=== PATIENT | male | born 1980 | race Caucasian/White ===

== ENCOUNTER 2019-07-26 07:06 | Inpatient (IN) | payer OTHER, SELFPAY ==
[2019-07-26] VITALS (13 sets, daily range): BP systolic 117–138; BP diastolic 79–90; PULSE 76–184; RESP 16–30; TEMP 36.7–37.1; O2SAT 80–96; BMI 22.4
--- NOTE | 2019-07-26 | ECHO_ITS ---
Patient Info Name: Michel Haque Age: 38 years : 1980 Gender: Male Ht: 74 in Wt: 174 lbs BSA: 2.03 m2 HR: 102 bpm BP: 130 / 90 mmHg Heart Rhythm: Sinus Rhythm Technical Quality: Fair Exam Date: 07/26/2019 2:03 PM Exam Location: [facility] Card Pulmonary Patient Status: Inpatient Admit Date: 07/26/2019 Staff Ordering Physician: Heriberto Bird MD Broaching Machine Operator: Melvi Christopher RDCS Attending Provider: Heriberto Bird MD Exam Type: CA echo doppler color flow Study Info Indications I48.0 - Paroxysmal atrial fibrillation - pulmonary edema Complete two-dimensional, color flow and Doppler transthoracic echocardiogram is performed. Summary 1. Left ventricular chamber dimension is normal. 2. Left ventricular systolic function is mildly reduced, estimated at 55-60%. 3. There is no increased left ventricular wall thickness. 4. The left ventricular diastolic function is indeterminate. 5. Definitive wall motion assessment cannot be provided. 6. There is mild aortic valve sclerosis. Left Ventricle Left ventricular chamber dimension is normal. Left ventricular systolic function is mildly reduced, estimated at 55-60%. There is no increased left ventricular wall thickness. The left ventricular diastolic function is indeterminate. Definitive wall motion assessment cannot be provided. Right Ventricle Right ventricular chamber dimension is normal. Right ventricular systolic function is normal. Left Atria Left atrial chamber dimension is normal. Right Atria Right atrial chamber dimension is normal. Atrial Septum Intact interatrial septum visualized by color flow imaging. Aortic Valve The aortic valve is trileaflet. There is mild aortic valve sclerosis. There is no aortic valve stenosis. There is trace aortic valve regurgitation. Pulmonic Valve The pulmonic valve is normal. Mitral Valve The mitral valve has normal leaflets. There is no mitral valve stenosis. There is trace mitral valve regurgitation. Tricuspid Valve The tricuspid valve leaflets are normal. There is no significant tricuspid valve stenosis. There is trace tricuspid valve regurgitation. Pericardium/Pleural The pericardium appears normal. There is trivial pericardial effusion. Inferior Vena Cava Normal inferior vena cava with >50% collapse upon inspiration consistent with normal right atrial pressure, 5 mmHg. Aorta The aortic root size at the sinus of Valsalva is normal. Tricuspid Valve Name Value Normal Estimated PAP/RSVP RA Pressure 5 mmHg <=5 Report Signatures
--- NOTE | ~2019-07-26 | XR_ITS ---
EXAMINATION: XR chest 1V portable DATE: 07/27/2019 06:33 INDICATION: Pulmonary edema. TECHNIQUE: A single frontal view of the chest was obtained. COMPARISON: Chest single view 07/26/2019 FINDINGS: There are perihilar interstitial opacities in the lungs bilaterally. No pleural effusion or pneumothorax. The heart size is normal. IMPRESSION: 1. Perihilar interstitial opacities in the lungs bilaterally with interval improvement, likely mild p ulmonary edema. Reviewed, dictated and finalized at location A. IMPRESSION: 1. Perihilar interstitial opacities in the lungs bilaterally with interval impr ovement, likely mild pulmonary edema.
--- NOTE | ~2019-07-26 | XR_ITS ---
EXAMINATION: XR chest 1V portable DATE: 07/26/2019 07:45 INDICATION: Hypoxia. TECHNIQUE: A single frontal view of the chest was obtained. COMPARISON: Chest 2 views 01/25/2019 FINDINGS: There are airspace opacities in right mid and lower lung zones and all left lung zones with a perihilar predominance. No pleural effusion or pneumothorax. The heart size is normal. IMPRESSION: 1. Diffuse lung disease, consistent with pulmonary edema versus pneumonia (especially atypical pneumo yamileth). Reviewed, dictated and finalized at location A. IMPRESSION: 1. Diffuse lung disease, consistent with pulmonary edema versus pneumonia (victoria cially atypical pneumonia).
--- NOTE | 2019-07-26 07:09 | ED.OVERDOSE ---
HPI - Overdose General Chief Complaint: Overdose Stated Complaint: OD Time Seen by Provider: 07/26/19 07:08 Source: patient, EMS and RN notes reviewed Mode of arrival: EMS Limitations: no limitations History of Present Illness HPI Narrative: Pt is a 38 y/o male who presents to the ED via EMS with c/o possible overdose happening this morning. According to the nurse, the pt has a Hx of heroin and Fentanyl use, but has been clean for roughly the past year. EMS notes that the pt's mother found him unresponsive in her basement this morning. He states that he doesn't remember what happened. EMS notes that the pt became more alert and responsive after administering 4 mg of Narcan while in route to the ED. Pt currently reports nausea, but denies any SOB, ABD pain, or melena. MD complaint: other (Possible Overdose) Intent: unknown How Overdose Was Discovered: family/friend present at time Associated symptoms: nausea/vomiting (nausea) Treatments Prior to Arrival: narcan (4 mg) Related Data Home Medications Medication Instructions Recorded Confirmed bupropion HCl [Wellbutrin SR] 100 mg PO BID 07/26/19 07/26/19 Allergies Allergy/AdvReac Type Severity Reaction Status Date / Time No Known Allergies Allergy Unknown Verified 07/26/19 11:24 Review of Systems Review of Systems: All systems reviewed & are unremarkable except as noted in HPI and below Respiratory: Respiratory: Denies dyspnea Gastrointestinal: Gastrointestinal: Denies abdominal pain, Denies melena and Reports nausea PMFSH Past Medical History Medical History ADD (attention deficit disorder) Alcoholism Anxiety Back pain History of drug use Otitis media Surgical History Surgical History Hx of hand surgery tendon repair on rt hand Family History Family History Sibling Cerebrovascular accident Son Asthma Other History of blood clots cousin had DVT's Mother Hypertension Other Colon cancer aunt Social History Social History (Updated 07/26/19 @ 12:46 by Heriberto Bird MD) Social History: Patient currently smoking half pack a day of cigarettes. Was up to 1 pack a day and has smoked for 25 years. Alcohol use as mentioned above. Drug use as mentioned above. He lives at home with his mother and his mother's girlfriend. He is a full code. He nominated his mother to be the individual who would make medical decisions for him if he is unable. Smoking packs per day: 0.5 Smoking cigarettes per day: 10.0 Years smoked: 23 Smoking pack-years: 11.50 Smoking status: Current every day smoker Tobacco type: cigarettes Alcohol intake: former Substance use: former Substance use type: heroin, opiates, IV drugs and methamphetamine Gender identity (if verbalized by the patient): Male Spiritual care concerns: No Agree to blood products: No Exam Const: General: alert Other: patient dry heaving, HENMT: Head: normocephalic and atraumatic Ears: hearing grossly normal bilaterally and external ears normal Face and sinus: normal facial exam and face symmetric Mouth: Yes Normal oral and palatal mucosa present and Yes lip normal Throat: posterior oropharynx normal, tonsils normal and uvula midline Eyes: Conjunctivae: conjunctivae normal Pupils: Equal, round and reactive pupils present EOM: EOMs intact bilaterally Chest: Chest palpation & inspection: normal inspection of the chest Resp: Effort & Inspection: normal respiratory effort and not tachypneic Auscultation: clear to auscultation bilaterally Cardio: Rate: tachycardic Rhythm: regular rhythm GI: GI Palp: Yes Soft to palpation, No Tenderness to palpation present (GI), No Guarding due to palpation present (GI) and No Rigid due to palpation Skin: General skin exam: normal color Rashes: no r
--- NOTE | 2019-07-26 07:11 | ECG_ITS ---
Measurements Intervals [place] Rate: 108 P: 76 WV: 144 QRS: 64 QRSD: 93 T: 58 QT: 269 QTc: 361 Interpretive Statements ATRIAL FIBRILLATION WITH RVR CHANGES TO SINUS RHYTHM BASELINE WANDER- V2 ABNORMAL ECG Electronically Signed On 07-26-2019 7:18:05 CDT by Marco Schneider D.O.
--- NOTE | 2019-07-26 07:18 | PC.NURSE ---
Dr Harp aware that patient had pulled out left EJ in field from EMS and area now swollen. Dr Harp also made aware of patient vomiting blood. No further orders at this time.
--- NOTE | 2019-07-26 07:21 | PC.NURSE ---
Report given to Henrietta HUERTA, Dr Harp at bedside
[2019-07-26] MEDS: ONDANSETRON INJ 4 MG/2 ML VIAL IV PUSH ×2 (07:24→09:54)
[2019-07-26] MEDS: PANTOPRAZOLE SODIUM IV 40 MG VIAL IV PUSH (07:27)
[2019-07-26 07:34] LABS: Alveolar/Arterial O2 Gradient 190.8 mmHg; Base Excess ABG -6.3 mEq/l (+/-2.0); Carboxyhemoglobin 1.6 % THb (0-2.0); Fractional Inspired Oxygen 44 %; HCO3 ABG 20.1 mEq/l (22.0-26.0); Methemoglobin ABG 0.7 %THb (0-1.5); Oxygen Content ABG 25.8 %vol (16.0-22.0); Oxygen Saturation ABG 93.3 % (95.0-100.0); Oxyhemoglobin 91.8 % THb (90.0-100.0); PCO2 ABG 42.9 mmHg (35.0-45.0); PO2 FiO2 Ratio Arterial Blood 1.68 %; Reduced Hemoglobin 5.9 %THb (0-5.0)
[2019-07-26 07:35] LABS: pH ABG 7.288 (7.350-7.450)
[2019-07-26 07:36] LABS: Device NASAL CANNULA; Modified Allen's Test Pass; Site Drawn RIGHT RADIAL
[2019-07-26 07:49] LABS: Basophils Percent Auto 0.3 % (0.2-1.2); Eosinophils Percent Auto 0.3 % (0-4.4); Hematocrit 54.8 % (42.0-52.0); Hemoglobin 18.7 g/dL (14.0-18.0); Immature Granulocyte Absolute 0.09 K/mm3 (0.00-0.031); Immature Granulocyte Percent A 0.8 % (0-0.5); Lymphocytes Absolute Auto 1.45 K/mm3 (0.9-3.2); Lymphocytes Percent Auto 12.1 % (18.3-44.2); Mean Corpuscular HGB Conc 34.1 g/dl (32-36); Mean Corpuscular Hemoglobin 30.9 pg (26-34); Mean Corpuscular Volume 90.4 fl (80-100); Mean Platelet Volume 10.1 fl (7.4-10.4); Monocytes Absolute Auto 0.4 K/mm3 (0.1-0.6); Neutrophils Percent Auto 83.5 % (45.5-73.1); Platelet Count Result 262 k/mm3 (150-375); Red Blood Count 6.06 M/mm3 (4.6-6.20); Red Cell Distribution Width 12.5 % (11.5-14.5)
[2019-07-26 08:02] LABS: Magnesium 2.1 mg/dL (1.6-2.3)
[2019-07-26 08:03] LABS: Lactic Acid Reflex 3.7 mmol/L (0.7-2.1)
[2019-07-26 08:04] LABS: Add Urine Microscopic? YES; Appearance Urine Clear (Clear); Bacteria Urine Trace /hpf; Bilirubin Urine Negative (Negative); Blood Urine Negative (Negative); Color Urine Yellow (Yellow); Glucose Urine UA 1+ mg/dL (Negative); Ketones Urine 1+ mg/dL (Negative); Leukocyte Esterase Ur Negative LEU/UL (Negative); Mucus Urine Heavy /lpf; Nitrate Urine Negative (Negative); Protein Urine 2+ mg/dL (Negative); Specific Grav Ur 1.031 (1.001-1.035); Squamous Epithelial Cell Urine Rare /hpf (Few); Urobilinogen Urine Negative mg/dL (<2.0)
[2019-07-26 08:16] LABS: Barbiturate Screen Urine Negative (Negative); Benzodiazepines Screen Urine Negative (Negative)
[2019-07-26 08:17] LABS: Acetaminophen < 10 ug/mL (10-30); Ethanol < 10 mg/dL (<10); Salicylate < 1.0 mg/dL (2-20)
[2019-07-26 08:22] LABS: INR 1.1; Prothrombin Time 13.5 Seconds (11.1-14.7)
[2019-07-26 08:23] LABS: Partial Thromboplastin Time 24.7 SECONDS (22.3-36.8)
[2019-07-26 08:30] LABS: Cannabinoid Screen Urine Negative (Negative); Cocaine Screen Urine Negative (Negative); Methadone Screen Urine Negative (Negative); Opiate Screen Urine Negative (Negative); Phencyclidine Screen Urine Negative (Negative)
[2019-07-26] MEDS: SODIUM CHLORIDE 0.9% IV 1,000 ML 999 ML IV CONT (08:30)
[2019-07-26 08:31] LABS: Amphetamine Screen Urine Positive (Negative)
[2019-07-26 08:33] LABS: NT Pro B Type Natriuretic Pept 38 PG/ML (5-100)
[2019-07-26 08:44] LABS: Alanine Aminotransferase 14 U/L (4-50); Albumin Level 4.6 g/dL (3.5-5.1); Alkaline Phosphatase 105 U/L (38-126); Aspartate Amino Transferase 33 U/L (17-59); Blood Urea Nitrogen 23 mg/dL (9-20); Calcium 8.8 mg/dL (8.4-10.2); Carbon Dioxide 20 mmol/L (22-30); Chloride 101 mmol/L (98-107); Estimated CRCL calculation 60 ml/min; Estimated Glomerular Filt Rate 49; Glucose 273 mg/dL (75-110); Potassium 3.6 mmol/L (3.4-5.0); Sodium 138 mmol/L (137-145)
[2019-07-26 10:46] LABS: Reflex Lactic Acid Yes or No Add Lactic
--- NOTE | 2019-07-26 11:07 | WPDCNINT ---
Assessment and Plan Assessment and plan (1) Drug overdose: Qualifiers: Encounter type: initial encounter Injury intent: accidental or unintentional Qualified Code(s): T50.901A - Poisoning by unspecified drugs, medicaments and biological substances, accidental (unintentional), initial encounter Code(s): T50.901A - Poisoning by unspecified drugs, medicaments and biological substances, accidental (unintentional), initial encounter Status: Acute Assessment and Plan: patient presented likely with methamphetamine and fentanyl overdose. Patient was found unresponsive by his mother and her basement On the morning of admission. - Patient did stated that he has been on methamphetamines 4 days prior to admission and could not sleep answer to talk fentanyl the night prior to admission to that he could sleep. - Patient did receive Narcan by the EMS personnel, and responded well - patient currently awake, alert, oriented, pleasant personality and cooperative. - will monitor for opioid and methamphetamine withdrawal - patient has been in rehab for the last 20 months, and with this pandemic of arias virus, he has not been able to follow-up. (2) Bilateral pulmonary infiltrates on chest x-ray: Code(s): R91.8 - Other nonspecific abnormal finding of lung field Status: Acute Assessment and Plan: bilateral pulmonary infiltrates could be related to atypical pneumonia secondary to SARS COV-2, patient was swabbed for COVID-19 on 07/26/2019 - chest x-ray and ABGs reviewed, could also be related to noncardiogenic pulmonary edema 2nd fentanyl use - will diurese patient - currently on 2 L nasal cannula with good O2 sats. (3) Noncardiogenic pulmonary edema: Code(s): J81.1 - Chronic pulmonary edema Status: Acute Assessment and Plan: Chest x-ray shows bilateral diffuse infiltrates, could be noncardiogenic pulmonary edema secondary to fentanyl - will reduce PCWP, will diurese patient - repeat chest x-ray later this evening or tomorrow morning (4) Tobacco use disorder: Code(s): F17.200 - Nicotine dependence, unspecified, uncomplicated Status: Acute Assessment and Plan: patient has a history of tobacco disorder, currently taking Wellbutrin and has cut back to half a packet per day incidental 1 pack per day. - counseled patient on tobacco cessation (5) Major depression: Qualifiers: Major depression recurrence: recurrent Active/Remission status: currently active Major depression episode severity: unspecified Qualified Code(s): F33.9 - Major depressive disorder, recurrent, unspecified Code(s): F32.9 - Major depressive disorder, single episode, unspecified Status: Acute Assessment and Plan: Continue Wellbutrin for now (6) DVT prophylaxis: Code(s): Z29.9 - Encounter for prophylactic measures, unspecified Status: Acute Assessment and Plan: enoxaparin Additional Plan discussed with patient updated with his condition and plan of care. I answered all his questions. Code status: Full code Critical care time spent:42 minutes Due to a high probability of clinically significant, life threatening deterioration, the patient required my highest level of preparedness to intervene emergently and I personally spent this critical care time directly and personally managing the patient. This critical care time included obtaining a history; examining the patient; pulse oximetry; ordering and review of studies; arranging urgent treatment with development of a management plan; evaluation of patient's response to treatment; frequent reassessment; and discussions with other providers. It was exclusive of separately billable procedures and treating other patients and teaching time. Please see Assessment and Plan section and the rest of the note for further information on patient assessment and treatment Legal Aide Consult Note
[2019-07-26] MEDS: FUROSEMIDE INJ 40 MG/4 ML VIAL IV PUSH (11:31)
[2019-07-26] MEDS: LACTATED RINGERS 1,000 ML 75 ML IV CONT (11:31)
--- NOTE | 2019-07-26 12:03 | PM.IMHP ---
H&P: HPI History of Present Illness Chief complaint: Acute respiratory failure w hypoxia/fentanyl overd Narrative: 38yo male here for unintentional drug overdose. Patient has a history of IV drug use, alcohol abuse, meth and fentanyl use. Patient had been clean for 20 months. He has been unable to get in to his AA meetings. He started Wellbutrin about a month ago has been compliant with this medication. He also has been recently tested for HIV and hepatitis which were about 1 month ago through [place]. Patient started using methamphetamine about 4-5 days ago. He has been hanging out with a friend over the past for 5 days. He believes that his friend was well without illness. He denies any significant review of systems of the past for 5 days however states that he was ?high the whole time?. He denies any recent fever chills. No COVID exposure that he is aware of. He had not slept for the past 4 days and decided to snort fentanyl last night. Patient has no memory of recent events until he was in the emergency room. Patient was found unresponsive by his mother and EMS was contacted. Patient was given Narcan x4 in the field. Patient became awake and alert. He developed nausea and vomiting. He was brought to the emergency room for evaluation. In the emergency room he was tachypneic and tachycardic to 184 with the pulse ox of 80% on room air. He was noted to be in atrial fibrillation converted to normal sinus rhythm. Blood pressure was stable. PH was 7.28 with a normal pCO2. Lactic acid was 3.7. Glucose was 273 and creatinine 0.6. Urine drug screen is positive for amphetamines. Chest x-ray reviewed personally showing diffuse lung disease consistent with pulmonary edema. Pneumonia could not be excluded. He was tested COVID. He was started on Zosyn. He had been having persistent nausea and vomiting with hematemesis. He was treated with Zofran. He has been admitted to the ICU for further care. Currently says he feels tired. Denies any headaches. He feels ?sad? but denies any suicidal or homicide ideation. He does feel short of breath and has a cough when he takes a deep breath. Still has the nausea but no further vomiting. No diarrhea. His weight is been stable. No chest pain. He states he drinks a pint of alcohol a day and this just started 4-5 days ago. Patient is voiding well after the Lasix dose. Review of Systems Review of Systems: All systems reviewed & are unremarkable except as noted in HPI and below PMFSH Past Medical History Medical History ADD (attention deficit disorder) Alcoholism Anxiety Back pain History of drug use Otitis media Surgical History Surgical History Hx of hand surgery tendon repair on rt hand Family History Family History Sibling Cerebrovascular accident Son Asthma Other History of blood clots cousin had DVT's Mother Hypertension Other Colon cancer aunt Social History Social History (Updated 07/26/19 @ 12:46 by Heriberto Bird MD) Social History: Patient currently smoking half pack a day of cigarettes. Was up to 1 pack a day and has smoked for 25 years. Alcohol use as mentioned above. Drug use as mentioned above. He lives at home with his mother and his mother's girlfriend. He is a full code. He nominated his mother to be the individual who would make medical decisions for him if he is unable. Smoking packs per day: 0.5 Smoking cigarettes per day: 10.0 Years smoked: 23 Smoking pack-years: 11.50 Smoking status: Current every day smoker Tobacco type: cigarettes Alcohol intake: former Substance use: former Substance use type: heroin, opiates, IV drugs and methamphetamine Gender identity (if verbalized by the patient): Male Spiritual care concerns: No Agree to blood products
[2019-07-26] MEDS: ENOXAPARIN 40 MG/0.4 ML SYRINGE SUB-Q (12:27)
[2019-07-26 13:02] LABS: Lactic Acid 1.9 mmol/L (0.7-2.1)
[2019-07-26] MEDS: THIAMINE HCL 200 MG/2 ML VIAL 100 MG IV PUSH (16:12)
[2019-07-26] MEDS: FOLIC ACID 1 MG/0.2 ML INJ IV PUSH (16:12)
[2019-07-26] MEDS: buPROPion HCL SR (12HR) 100 MG TABCR PO (20:36)
[2019-07-27] VITALS: BP 124/78; PULSE 76; PULSE 83; PULSE 85; RESP 14; TEMP 36.6; O2SAT 97
[2019-07-27 04:00] VITALS: PULSE 72; PULSE 83
[2019-07-27 05:52] LABS: Basophils Percent Auto 0.2 % (0.2-1.2); Eosinophils Absolute Auto 0.2 K/mm3 (0-0.3); Eosinophils Percent Auto 1.5 % (0-4.4); Hemoglobin 16.3 g/dL (14.0-18.0); Immature Granulocyte Absolute 0.03 K/mm3 (0.00-0.031); Immature Granulocyte Percent A 0.3 % (0-0.5); Lymphocytes Absolute Auto 3.52 K/mm3 (0.9-3.2); Lymphocytes Percent Auto 29.9 % (18.3-44.2); Mean Corpuscular HGB Conc 34.7 g/dl (32-36); Mean Corpuscular Volume 89.5 fl (80-100); Mean Platelet Volume 9.8 fl (7.4-10.4); Monocytes Absolute Auto 0.9 K/mm3 (0.1-0.6); Monocytes Percent Auto 7.6 % (2.6-8.5); Neutrophils Absolute Auto 7.1 K/mm3 (1.3-6.7); Neutrophils Percent Auto 60.5 % (45.5-73.1); Platelet Count Result 191 k/mm3 (150-375); Red Blood Count 5.25 M/mm3 (4.6-6.20); Red Cell Distribution Width 12.3 % (11.5-14.5); White Blood Count 11.8 K/mm3 (4.5-10.0)
[2019-07-27 06:04] LABS: Alanine Aminotransferase 11 U/L (4-50); Albumin Level 3.5 g/dL (3.5-5.1); Alkaline Phosphatase 66 U/L (38-126); Aspartate Amino Transferase 21 U/L (17-59); Blood Urea Nitrogen 21 mg/dL (9-20); Calcium 8.2 mg/dL (8.4-10.2); Carbon Dioxide 28 mmol/L (22-30); Chloride 102 mmol/L (98-107); Estimated CRCL calculation 73 ml/min; Estimated Glomerular Filt Rate 57; Glucose 91 mg/dL (75-110); Lactic Acid Reflex 0.8 mmol/L (0.7-2.1); Potassium 3.6 mmol/L (3.4-5.0); Sodium 137 mmol/L (137-145)
[2019-07-27 08:00] VITALS: BP 116/63; PULSE 67; PULSE 70; PULSE 83; RESP 18; TEMP 35.9; O2SAT 93
[2019-07-27] MEDS: PANTOPRAZOLE SODIUM IV 40 MG VIAL IV PUSH (08:24)
[2019-07-27] MEDS: ENOXAPARIN 40 MG/0.4 ML SYRINGE SUB-Q (08:24)
[2019-07-27] MEDS: FOLIC ACID 1 MG TABLET PO (08:24)
[2019-07-27] MEDS: buPROPion HCL SR (12HR) 100 MG TABCR PO (08:24)
[2019-07-27] MEDS: THIAMINE HCL 100 MG TABLET PO (08:24)
[2019-07-27 11:40] VITALS: PULSE 75
[2019-07-27 12:00] VITALS: PULSE 76
--- NOTE | 2019-07-27 14:11 | PM.IMPN ---
Progress Note: A&P Assessment and Plan (1) Noncardiogenic pulmonary edema: Code(s): J81.1 - Chronic pulmonary edema Status: Acute Assessment and Plan: Consistent with pulmonary edema versus pneumonia. Consider atypical pneumonia. COVID testing initiated with results pending but felt less likely. Chest x-ray findings could be related to diffuse lung reaction related to snorting fentanyl. Echocardiogram with EF 55-60% as noted below. Patient may also have been in atrial fibrillation longer than suspected which also could have contributed to pulmonary edema. Did receive Lasix x 1. Chest xray today with interval improvement of perihilar intersititial opacities. On room air. Discussed with patient. Will discharge home today as long as no issues with getting home/isolation at home as clinically improved and can continue to monitor as outpatient. Will need to remain in isolation while awaiting COVID test results. (2) Bilateral pulmonary infiltrates on chest x-ray: Code(s): R91.8 - Other nonspecific abnormal finding of lung field Status: Acute Assessment and Plan: WBC 11.8 today. More likely pulmonary edema from issues as noted above. Will continue IV Zosyn while here with plan to transition to oral Augmentin at discharge. (3) Drug overdose: Qualifiers: Encounter type: initial encounter Injury intent: accidental or unintentional Qualified Code(s): T50.901A - Poisoning by unspecified drugs, medicaments and biological substances, accidental (unintentional), initial encounter Code(s): T50.901A - Poisoning by unspecified drugs, medicaments and biological substances, accidental (unintentional), initial encounter Status: Acute Assessment and Plan: Unintentional drug overdose found by his mother. He required 4 doses of Narcan in the field. Patient appropriately fearful of his actions and voices understanding that he could have if not found. Continue supportive care. (4) Acute kidney injury: Code(s): N17.9 - Acute kidney failure, unspecified Status: Acute Assessment and Plan: IV fluids already discontinued yesterday. Result of above issues. Creatinine improved to 1.40 today. Will need to follow as outpatient. (5) Atrial fibrillation with rapid ventricular response: Code(s): I48.91 - Unspecified atrial fibrillation Status: Acute Assessment and Plan: Most likely had atrial fibrillation on admission related to his drug use and/or acute withdrawal symptoms with the Narcan. Patient converted to normal sinus rhythm. [id number] score 0. Telemtry reviewed on 07/27/2019 with continued sinus rhythm. Echocardiogram with EF 55-60%, definitive wall motion assessment cannot be provided. ASA considered but not started due to hematemesis. TSh normal at 2.900 today. (6) Hematemesis: Qualifiers: Nausea presence: with nausea Qualified Code(s): K92.0 - Hematemesis Code(s): K92.0 - Hematemesis Status: Acute Assessment and Plan: Patient was having hematemesis in the emergency room most likely related to acute withdrawal after being given the Narcan. Now resolved. No further nausea or vomiting. Hgb 16.3 today. (7) Alcoholism: Code(s): F10.20 - Alcohol dependence, uncomplicated Status: Acute Assessment and Plan: Patient has a history of alcoholism. He has been sober for 20 months. He relapsed a few days ago and now is back up to drinking a pint today. Continue thiamine and folate. Ativan available as needed for signs or symptoms of withdrawal but has not been used. (8) History of drug use: Code(s): Z87.898 - Personal history of other specified conditions Status: Acute Assessment and Plan: Patient has a history drug use including IV drug use. He has been clean for 20 months but has relapsed. Will need to follow up as outpatient when able. (9) Major depression:
--- NOTE | 2019-07-27 18:54 | PM.DS ---
DS: Diagnosis Admitting Diagnosis Admitting Diagnosis: Poisoning by unspecified drugs, medicaments and biological substances, accidental (unintentional), initial encounter Discharge Diagnosis (1) Noncardiogenic pulmonary edema: Code(s): J81.1 - Chronic pulmonary edema Status: Acute (2) Acute respiratory failure with hypoxia: Code(s): J96.01 - Acute respiratory failure with hypoxia Status: Acute (3) Bilateral pulmonary infiltrates on chest x-ray: Code(s): R91.8 - Other nonspecific abnormal finding of lung field Status: Acute (4) Drug overdose: Qualifiers: Encounter type: initial encounter Injury intent: accidental or unintentional Qualified Code(s): T50.901A - Poisoning by unspecified drugs, medicaments and biological substances, accidental (unintentional), initial encounter Code(s): T50.901A - Poisoning by unspecified drugs, medicaments and biological substances, accidental (unintentional), initial encounter Status: Acute (5) Acute kidney injury: Code(s): N17.9 - Acute kidney failure, unspecified Status: Acute (6) Atrial fibrillation with rapid ventricular response: Code(s): I48.91 - Unspecified atrial fibrillation Status: Acute (7) Hematemesis: Qualifiers: Nausea presence: with nausea Qualified Code(s): K92.0 - Hematemesis Code(s): K92.0 - Hematemesis Status: Acute (8) Alcoholism: Code(s): F10.20 - Alcohol dependence, uncomplicated Status: Acute (9) History of drug use: Code(s): Z87.898 - Personal history of other specified conditions Status: Acute (10) Major depression: Qualifiers: Major depression recurrence: recurrent Active/Remission status: currently active Major depression episode severity: unspecified Qualified Code(s): F33.9 - Major depressive disorder, recurrent, unspecified Code(s): F32.9 - Major depressive disorder, single episode, unspecified Status: Acute (11) Tobacco use disorder: Code(s): F17.200 - Nicotine dependence, unspecified, uncomplicated Status: Acute DS: Summary Hospital Course Reason for hospitalization: Accidental overdose. Hospital Course: Date of Service of Discharge: July 27, 2019. History of Present Illness: Patient is a 38-year-old gentleman with known history of IV drug use, alcohol abuse including methamphetamine and fentanyl use who was brought to the emergency room with unintentional drug overdose. Patient has been clean for approximately 20 months but has been unable to go to his AA meetings due to current COVID-19 pandemic. Patient started Wellbutrin 1 month ago and has been compliant. He reports starting to use methamphetamine approximately 4-5 days ago. He denies any recent fever or chills. No COVID exposure that he is aware of. Patient reports he was unable to sleep for 4 days and decided to snort fentanyl the night before presentation. Patient was found unresponsive by his mother with EMS contacted. EMS administered Narcan x4 in the field. Patient then became awake and alert. He subsequently developed nausea and vomiting. He was brought to the emergency room for evaluation. In the emergency room he was noted to be tachypneic and tachycardic as well as an atrial fibrillation but converted to sinus rhythm on his own. Imaging did show diffuse lung disease consistent with pulmonary edema. With all of his findings, COVID testing was initiated. He was admitted to the ICU for further evaluation and treatment. Course in Hospital: On admission, patient was admitted to the ICU but within 12 hours transfer to medical floor with telemetry. He was placed on isolation with COVID testing pending. He was started on IV Zosyn with concern for possible aspiration. Additionally based on imaging, he was given IV Lasix. He was seen in consultation by home health billing specialist. After all evaluations, pulmonary edema was felt more li
[2019-07-28 05:35] LABS: Pan-SARS RNA: NEGATIVE (NEGATIVE); SARS-CoV-2 RNA: NEGATIVE (NEGATIVE)
== END 2019-07-27 16:45 | disposition home or self-care (01) | DRG 812 ==
LOC: ANHED 09:24 → ANHICU 10:09
PROVIDERS: Internal Medicine; Admitting Provider Internal Medicine; Emergency Provider General Practice; Visit Provider Hospitalist
DX: T40.4X1A Poisoning by other synthetic narcotics, accidental (unintentional), initial encounter (principal); T43.621A Poisoning by amphetamines, accidental (unintentional), initial encounter; N17.9 Acute kidney failure, unspecified; I48.91 Unspecified atrial fibrillation; J70.2 Acute drug-induced interstitial lung disorders; K92.0 Hematemesis; F10.20 Alcohol dependence, uncomplicated; F41.9 Anxiety disorder, unspecified; F98.8 Other specified behavioral and emotional disorders with onset usually occurring in childhood and adolescence; J96.01 Acute respiratory failure with hypoxia; E87.2 Acidosis; R91.8 Other nonspecific abnormal finding of lung field; F17.210 Nicotine dependence, cigarettes, uncomplicated; Z03.818 Encounter for observation for suspected exposure to other biological agents ruled out
CPT/HCPCS: 36415; 36600; 71045; 80053; 80307; 81001; 82375; 82805; 83050; 83605; 83735; 83880; 84443; 85025; 85610; 85730; 86850; 86900; 86901; 87040; 87086; 87635; 87804; 93005; 93306; 96361; 96365; 96375; 96376; 99285; A9270; C9113; C9803; J1650; J1940; J2405; J2543; J3411; J7030; J7120; U0002

== ENCOUNTER 2020-08-17 09:44 | Emergency (ER) | payer OTHER, SELFPAY ==
--- NOTE | ~2020-08-17 | XR_ITS ---
XR finger 1st LT min 2V 08/17/2020 10:23 Indication: Left first finger pain Procedure: 4 views left first finger Comparison: No prior studies for comparison. Findings: There is soft tissue deformity overlying the tuft of the distal phalanx. No fracture, sublu xation or dislocation. No foreign bodies. Impression: 1: No acute bone or joint abnormality. Reviewed, dictated and finalized at location B. Impression: 1: No acute bone or joint abnormality.
[2020-08-17 09:51] VITALS: BP 134/93; PULSE 93; RESP 20; TEMP 36.4; O2SAT 99
--- NOTE | 2020-08-17 10:16 | ED.WOUNDLAC ---
HPI - Wound/Laceration General Chief Complaint: Wound/Laceration <Roxi Rm PA-C - Last Filed: 08/17/20 11:58> Stated Complaint: lac to left thumb <Roxi Rm PA-C - Last Filed: 08/17/20 11:58> Time Seen by Provider: 08/17/20 09:56 <Roxi Rm PA-C - Last Filed: 08/17/20 11:58> Source: patient <Roxi Rm PA-C - Last Filed: 08/17/20 11:58> Mode of arrival: ambulatory <Roxi Rm PA-C - Last Filed: 08/17/20 11:58> Limitations: no limitations <Roxi Rm PA-C - Last Filed: 08/17/20 11:58> History of Present Illness HPI narrative: This is a 39-year-old male that presents the emergency department for laceration to the left first finger sustained just prior to arrival. Reports he was putting in floors and cut his left thumb with a utility knife. Reports bleeding and pain to the area. He is up-to-date on tetanus. Denies decreased range of motion or numbness. <Roxi Rm PA-C - Last Filed: 08/17/20 11:58> Related Data Allergies/Adverse Reactions: Allergies Allergy/AdvReac Type Severity Reaction Status Date / Time No Known Allergies Allergy Verified 08/17/20 09:57 <Roxi Rm PA-C - Last Filed: 08/17/20 11:58> Review of Systems Review of Systems: Narrative: CONSTITUTIONAL: Denies fever SKIN: Reports laceration MUSCULOSKELETAL: Denies joint pain NEUROLOGIC: Denies numbness <Roxi Rm PA-C - Last Filed: 08/17/20 11:58> All systems reviewed & are unremarkable except as noted in HPI and below <Roxi Rm PA-C - Last Filed: 08/17/20 11:58> [facility] Past Medical History Medical History: Medical History (Updated 08/17/20 @ 11:57 by Roxi Rm PA-C) ADD (attention deficit disorder) Alcoholism Anxiety Back pain History of drug use Otitis media <Roxi Rm PA-C - Last Filed: 08/17/20 11:58> Surgical History Surgical History: Surgical History Hx of hand surgery tendon repair on rt hand <Roxi Rm PA-C - Last Filed: 08/17/20 11:58> Family History Family History: Family History Sibling Cerebrovascular accident Son Asthma Other History of blood clots cousin had DVT's Mother Hypertension Other Colon cancer aunt <Roxi Rm PA-C - Last Filed: 08/17/20 11:58> Social History Social History: Social History (Updated 07/26/19 @ 12:46 by Heriberto Bird MD) Social History: Patient currently smoking half pack a day of cigarettes. Was up to 1 pack a day and has smoked for 25 years. Alcohol use as mentioned above. Drug use as mentioned above. He lives at home with his mother and his mother's girlfriend. He is a full code. He nominated his mother to be the individual who would make medical decisions for him if he is unable. Smoking packs per day: 0.5 Smoking cigarettes per day: 10.0 Years smoked: 23 Smoking pack-years: 11.50 Smoking status: Current every day smoker Tobacco type: cigarettes Alcohol intake: former Substance use: former Substance use type: heroin, opiates, IV drugs and methamphetamine Gender identity (if verbalized by the patient): Male Spiritual care concerns: No Agree to blood products: No <Roxi Rm PA-C - Last Filed: 08/17/20 11:58> Exam Narrative: Exam Narrative: GENERAL: Well-appearing, well-nourished, and in no acute distress. HEAD: Normocephalic, atraumatic. EYES: EOMI. EXTREMITIES: Normal range of motion. 4cm laceration into the subcutaneous tissue to the left first finger that extends from the dorsal surface distal phalanx to the palmar surface interphalangeal joint. Normal sensation. Normal radial pulses SKIN: Warm, dry, no rash. NEURO: No focal deficits. Alert and oriented x3. PSYCH: Normal mood and affect <Roxi Rm PA-C - Last Filed: 08/17/20 11:58> [facility]
[2020-08-17] MEDS: ceFAZolin SODIUM 1 GM VIAL IM (11:01)
[2020-08-17] MEDS: WATER, STERILE FOR INJECTION 10 ML VIAL XX (11:02)
== END 2020-08-17 12:26 | disposition home or self-care (01) ==
PROVIDERS: Emergency Provider General Practice
DX: S61.012A Laceration without foreign body of left thumb without damage to nail, initial encounter (principal); F17.210 Nicotine dependence, cigarettes, uncomplicated; W27.0XXA Contact with workbench tool, initial encounter
CPT/HCPCS: 12002; 73140; 96372; 99283; J0690